=== PATIENT | male | born 1955 | race Caucasian/White ===

== ENCOUNTER 2017-02-07 01:31 | Emergency (ER) | payer MEDICARE ==
[~2017-02-07] VITALS: Ht 182.9 cm; Wt 90.0 kg
[2017-02-07] MEDS ORDERED: ESCI20TA PO (01:52)
[2017-02-07] MEDS ORDERED: OXYB5TAB PO (01:52)
[2017-02-07] MEDS ORDERED: TAMS0.4C2 PO (01:52)
[2017-02-07] MEDS ORDERED: TRAM50TA2 PO (01:52)
[2017-02-07] MEDS ORDERED: FINA5TAB4 PO (01:52)
[2017-02-07] MEDS ORDERED: SODIUM CHLORIDE 0.9% 1,000ML IVBOLUS ONE (02:00)
[2017-02-07 02:01] LABS: DAU SCREEN DISCLAIMER
[2017-02-07 02:16] LABS: ASPARTATE AMINO TRANSFERASE 16 U/L (15-37); BLOOD UREA NITROGEN 15 mg/dL (7-18)
[2017-02-07 02:52] LABS: IS PT STATUS REG ER OR PRE ER? YES
[2017-02-07 03:14] VITALS: BP 139/91
== END 2017-02-07 03:43 | disposition home or self-care (01) ==
LOC: ED 03:37
DX: G43.C0 Periodic headache syndromes in child or adult, not intractable (principal)
CPT/HCPCS: 36415; 70450; 71010; 80053; 80307; 81001; 84484; 85025; 93005; 96360; 99285; J7030